=== PATIENT | female | born 1985 | race Caucasian/White ===

== ENCOUNTER 2017-01-19 16:33 | Emergency (ER) | payer SELFPAY ==
[~2017-01-19] VITALS: Ht 167.6 cm; Wt 83.0 kg
[2017-01-19 16:35] VITALS: BP 135/94; PULSE 90; RESP 16; TEMP 98.4; O2SAT 95
== END 2017-01-19 17:59 | disposition left against medical advice (07) ==
LOC: NED 16:33
DX: Z53.21 Procedure and treatment not carried out due to patient leaving prior to being seen by health care provider (principal)
CPT/HCPCS: 99281